=== PATIENT | female | born 1940 | race Caucasian/White ===

== ENCOUNTER 2019-03-22 13:22 | Outpatient (CLI) | payer BC ==
--- NOTE | 2019-03-22 13:47 | ULT ---
BILATERAL CAROTID DUPLEX ULTRASOUND: HISTORY: Hyperlipidemia TECHNIQUE: Grayscale, color-flow and spectral Doppler ultrasound imaging of the extracranial carotid artery syst ems was performed bilaterally. FINDINGS: No significant plaque formation or intimal wall thickening is seen. The peak systolic velocity in the right ICA measures 75 cm/s with an end-diastolic velocity of 18 cm/ s and a systolic ratio of 0.71. The peak systolic velocity in the left ICA measures 103 cm/s with an end-diastolic velocity of 18 cm/s and a systolic ratio of 1.22. Flow in both vertebral arteries remains antegrade. IMPRESSION: No evidence of hemodynamically significant stenosis.
== END 2019-03-22 13:23 | disposition home or self-care (01) ==
LOC: SCSULT 13:22
PROVIDERS: ATTEND Family Medicine
DX: E78.5 Hyperlipidemia, unspecified (principal); Z82.49 Family history of ischemic heart disease and other diseases of the circulatory system
CPT/HCPCS: 93880

== ENCOUNTER 2019-06-20 15:05 | Outpatient (CLI) | payer BC ==
--- NOTE | 2019-06-20 15:44 | RAD ---
3 views of the right foot: 06/20/2019 COMPARISON: None HISTORY: Trauma 10 days ago, right foot pain and swelling FINDINGS: There is prominent degenerative change at the first metatarsal-phalangeal joint with joint space narrowing, subchondral sclerosis, and osteophyte formation. No displaced fracture or evidence of dislocation is seen. 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 No acute fracture or disloc ation noted.
== END 2019-06-20 15:06 | disposition home or self-care (01) ==
LOC: SCSRAD 15:05
PROVIDERS: ATTEND Family Medicine
DX: M79.671 Pain in right foot (principal); M19.071 Primary osteoarthritis, right ankle and foot

== ENCOUNTER 2022-02-11 11:55 | Outpatient (CLI) | payer BC | END 2022-02-11 11:56 | disposition home or self-care (01) | LOC: SCSRAD 11:55 | PROVIDERS: ATTEND Family Medicine | DX: M25.531 Pain in right wrist (principal) ==

== ENCOUNTER 2023-11-22 09:52 | Outpatient (CLI) | payer BC | END 2023-11-22 09:53 | disposition home or self-care (01) | LOC: SCSRAD 09:52 | PROVIDERS: ATTEND Family Medicine | DX: M25.562 Pain in left knee (principal); S82.002A Unspecified fracture of left patella, initial encounter for closed fracture ==

== ENCOUNTER 2025-07-24 10:45 | Outpatient (CLI) | payer MEDICARE | END 2025-07-24 10:46 | disposition home or self-care (01) | LOC: SCSRAD 10:45 | PROVIDERS: ATTEND Family Medicine | DX: M25.562 Pain in left knee (principal) ==